=== PATIENT | male | born 1960 | race Hispanic/Latino ===

== ENCOUNTER → 2018-04-19 | Day surgery (SDC) | payer BC ==
[~2018-04-19] MED LIST: BP MED PO; BUPIVACAINE HCL 0.5% INJ 30 ML VIAL INJ ONE; CEFAZOLIN SOD 1 GM VIAL ONE; CHOLESTEROL MED PO; DEXAMETHASONE SOD PHOS INJ 4 MG/ML VIAL ONE; EPINEPHRINE 2.25% INH NEBU SOL 0.5 ML VIAL ONE; EPINEPHRINE HCL INJ 1 MG/ML AMP ONE; FENTANYL CITRATE/PF 100MCG/2 ML INJ ONE; GLYCOPYRROLATE INJ 1MG/ 5 ML SYR ONE; KETOROLAC TROMETHAMINE 30 MG/ML VIAL ONE; LIDOCAINE HCL 2% LOCAL INJ 5 ML SDV VIAL INJ ONE; LISINOPRIL10 MG PO; MIDAZOLAM HCL 2 MG/2 ML VIAL ONE; MORPHINE SULFATE 2 MG/ML SYR ONE; NEOSTIGMINE 5 MG/5ML SYR ONE; ONDANSETRON HCL INJ 2 MG/ML VIAL ONE; PHENYLEPHRINE HCL 1% 10 MG/ML VIAL ONE; PRAVASTATIN SOD20 MG; PROPOFOL IV EMULSION 10 MG/ML 20 ML VIAL ONE; ROCURONIUM BROMIDE 10 MG/ML 5ML VIAL ONE; SEVOFLURANE INHAL SOLN 250 ML PEN BTL ONE
--- NOTE | 2018-04-19 13:06 | Operative Report ---
DATE OF PROCEDURE: April 19, 2018 [employer]ERCIAL ENERGY RATER: Cam Costa PA-C. The patient was brought to the operating room for induction of anesthesia. Throughout this case, my PA's assistance was necessary for retraction of soft tissue and positioning of the extremity. This allows for efficient and technically successful execution of the operation and is considered medically necessary. PREOPERATIVE DIAGNOSIS: Right shoulder rotator cuff tear. POSTOPERATIVE DIAGNOSIS: Right shoulder rotator cuff tear. PROCEDURES: Right shoulder arthroscopy, subacromial decompression, rotator cuff repair. INDICATIONS: The patient is a 58-year-old gentleman who has clinic signs and symptoms consistent with a right shoulder rotator cuff tear. The findings and options have been discussed. We plan on surgical repair. The risks and benefits have been explained. He states he understands and wishes to proceed. DESCRIPTION OF PROCEDURE: The patient was brought to the operating room and placed under general anesthetic. He received prophylactic antibiotics and a regional block in the holding area. He was positioned in the beach chair position on the shoulder table. His right upper extremity was prepped and draped in a sterile manner. A preoperative time-out was performed. Standard arthroscopy portals were established. The shoulder was insufflated with sterile saline and systematically inspected. There was a moderate amount of intra-articular synovitis. The biceps tendon was chronically torn and absent from the supraglenoid tubercle. There was a full-thickness tear of the anterior supraspinatus. A shaver was introduced through a lateral portal into the shoulder joint. The synovitis was electrocauterized. The articular surface of the rotator cuff tear was debrided back to more healthy tissue. The glenohumeral surfaces otherwise showed some grade-1 changes but did not require any attention. The scope was placed in the subacromial space. Extensive subacromial bursitis was required to be debrided for appropriate visualization. A subacromial spur was decompressed. The bursal surface of the rotator cuff was debrided back to healthy tissue. The lateral gutter was debrided. Once the bony subacromial decompression was completed, the greater tuberosity was decorticated. An [employer] SpeedBridge rotator cuff repair system was used. Electrical Construction Project Manager holes were placed in the articular margin. Bioabsorbable anchors pre-loaded with FiberTape stitches were seated. These were passed through the rotator cuff using an [employer] Scorpion suture passer. An anterior shuttle portal had been established. The tear was then repaired down to bleeding cancellous bone using superior lateral secondary suture anchors. The stitches were prepared in an anterior to posterior and posterior to anterior bridging construct. Nice secure repair was obtained. The arthroscopic instruments were removed. The portal incisions were closed with nylon stitches. A sterile bandage and an UltraSling were applied. The patient was extubated and transported to the recovery room in stable condition. Job#: [id number]
== END | disposition home or self-care (01) ==
LOC: OR 07:42
PROVIDERS: ATTEND Specialist
DX: S46.021A Laceration of muscle(s) and tendon(s) of the rotator cuff of right shoulder, initial encounter (principal); M75.81 Other shoulder lesions, right shoulder; S46.211A Strain of muscle, fascia and tendon of other parts of biceps, right arm, initial encounter; I10 Essential (primary) hypertension; E78.00 Pure hypercholesterolemia, unspecified; X58.XXXA Exposure to other specified factors, initial encounter; Z01.810 Encounter for preprocedural cardiovascular examination
CPT/HCPCS: 29827; 93005; C1713; J0171; J0690; J1100; J1885; J2001; J2250; J2270; J2370; J2405; J3490